=== PATIENT | male | born 1960 | race Caucasian/White ===

== ENCOUNTER 2021-03-26 08:41 | Emergency (ER) | payer OTHER ==
[~2021-03-26] VITALS: Ht 180.3 cm; Wt 79.4 kg
[2021-03-26] MEDS ORDERED: TRULICITY0.75 MG/0. (08:54)
[2021-03-26] MEDS ORDERED: SIMVASTATIN40 MG PO (08:55)
[2021-03-26] MEDS ORDERED: AMARYL4 MG PO (08:55)
[2021-03-26] MEDS ORDERED: LISINOPRIL-HCT1 EAC2 PO (08:55)
[2021-03-26] MEDS ORDERED: SYNJARDY XR 121 EACH PO (08:56)
== END 2021-03-26 09:25 | disposition home or self-care (01) ==
LOC: ED 08:41
DX: S01.91XA Laceration without foreign body of unspecified part of head, initial encounter (principal); Z23 Encounter for immunization; E11.9 Type 2 diabetes mellitus without complications; I10 Essential (primary) hypertension; W26.8XXA Contact with other sharp object(s), not elsewhere classified, initial encounter; Y99.0 Civilian activity done for income or pay; Z88.0 Allergy status to penicillin; Z79.899 Other long term (current) drug therapy
CPT/HCPCS: 90471; 90715; 99282